=== PATIENT | female | born 1955 | race Caucasian/White ===

== ENCOUNTER 2019-03-11 08:26 | Inpatient (IN) ==
[2019-03-11] MEDS ORDERED: VANCOMYCIN INJ 1,250 MG in SODIUM CHLORIDE 0.9% 250 ML IV STA (09:27)
[2019-03-11 09:37] LABS: Basophils # 0.1 10*3/uL (0.0-0.2); Basophils % 1.1 % (0.0-0.8); Eosinophils # 0.3 10*3/uL (0.0-0.87); Eosinophils % 3.6 % (0.00-10.9); Hemoglobin 15.7 GM/DL (12.0-16.0); Immature Granulocytes % 0.5 %; Immature Granulocytes Absolute 0.04 #; Lymphocytes # 1.4 10*3/uL (1.4-4.0); Lymphocytes % 16.6 % (21.3-54.2); Mean Corpuscular HGB Conc 34.9 GM/DL (32-36); Mean Corpuscular Volume 95.3 FL (87-102); Mean Platelet Volume 9.9 FL (9.6-12.0); Monocytes % 11.7 % (1.7-12.7); Neutrophils % 66.5 % (38.7-73.9); Platelet Count 170 T/CUMM (130-400); Red Blood Count 4.72 MC/CUMM (3.8-5.5); Red Cell Distribution Width 12.7 % (9.3-17.3); White Blood Count 8.4 T/CUMM (4-12)
[2019-03-11 09:55] LABS: Calcium 9.6 MG/DL (8.5-10.1); Osmolality,Calculated 278.2 MOS/KG (273-304)
[2019-03-11] MEDS ORDERED: diphenhydrAMINE CAP 50 MG CAPSULE PO STA (10:00)
[2019-03-11] MEDS ORDERED: methylPREDNISolone SOD SUC 40 MG/1 ML VIAL IV STA (10:02)
[2019-03-11 10:40] LABS: Sedimentation Rate-Westergren 33 MM/HR (0-30)
[2019-03-11] MEDS ORDERED: ONDANSETRON 4 MG/2 ML VIAL IV PRN (10:58)
[2019-03-11] MEDS ORDERED: GLUCAGON 1 MG VIAL IM PRN (10:58)
[2019-03-11] MEDS ORDERED: DEXTROSE 50% 25 GM/50 ML VIAL IV PRN (10:58)
[2019-03-11] MEDS ORDERED: ACETAMINOPHEN 325 MG TABLET PO PRN (10:58)
[2019-03-11] MEDS ORDERED: NITROGLYCERIN SL 0.4 MG TABLET SL PRN (11:02)
[2019-03-11] MEDS ORDERED: VANCOMYCIN INJ 1,000 MG in SODIUM CHLORIDE 0.9% 250 ML IV SCH (11:30)
[2019-03-11] MEDS: MORPHINE 4 MG/1 ML VIAL IV PRN ×2 (12:51→22:28)
[2019-03-11] MEDS: ENOXAPARIN 40 MG/0.4 ML SYRINGE SUBCUT SCH (14:05)
[2019-03-11] MEDS: diphenhydrAMINE CAP 25 MG CAPSULE PO SCH (17:03)
[2019-03-11] MEDS: SODIUM CHLORIDE 0.45% 1,000 ML IV SCH ×2 (17:08→22:28)
[2019-03-11] MEDS: INSULIN LISPRO 100 UNIT/ML SUBCUT SCH ×3 (18:48→22:27)
[2019-03-11] MEDS: ATORVASTATIN 20 MG TABLET PO SCH (21:40)
[2019-03-11] MEDS: DOCUSATE SODIUM 100 MG CAPSULE PO SCH (21:40)
[2019-03-11] MEDS: DOMPERIDONE 10 MG PO SCH (21:41)
[2019-03-11] MEDS ORDERED: VANCOMYCIN INJ 1,250 MG in SODIUM CHLORIDE 0.9% 250 ML IV SCH (22:00)
[2019-03-11] MEDS: INSULIN GLARGINE 100 UNIT/ML SUBCUT SCH (22:25)
[2019-03-12] MEDS: diphenhydrAMINE CAP 25 MG CAPSULE PO SCH ×2 (01:38→05:30)
[2019-03-12] MEDS: SODIUM CHLORIDE 0.45% 1,000 ML IV SCH ×4 (05:31→19:29)
[2019-03-12 06:26] LABS: Basophils % 0.3 % (0.0-0.8); Hemoglobin 14.9 GM/DL (12.0-16.0); Immature Granulocytes % 0.7 %; Immature Granulocytes Absolute 0.07 #; Lymphocytes # 0.8 10*3/uL (1.4-4.0); Lymphocytes % 7.6 % (21.3-54.2); Mean Corpuscular HGB Conc 34.7 GM/DL (32-36); Mean Corpuscular Volume 94.9 FL (87-102); Mean Platelet Volume 10.5 FL (9.6-12.0); Monocytes % 3.9 % (1.7-12.7); Neutrophils % 87.5 % (38.7-73.9); Platelet Count 188 T/CUMM (130-400); Red Blood Count 4.53 MC/CUMM (3.8-5.5); Red Cell Distribution Width 12.9 % (9.3-17.3); White Blood Count 10.3 T/CUMM (4-12)
[2019-03-12 06:43] LABS: Calcium 9.2 MG/DL (8.5-10.1); Osmolality,Calculated 279.1 MOS/KG (273-304)
[2019-03-12] MEDS: INSULIN LISPRO 100 UNIT/ML SUBCUT SCH ×4 (09:19→20:31)
[2019-03-12] MEDS: ASPIRIN EC 81 MG TABLET PO SCH (09:20)
[2019-03-12] MEDS: sitaGLIPtin 100 MG TABLET PO SCH (09:20)
[2019-03-12] MEDS: PANTOPRAZOLE 40 MG TABLET PO SCH (09:20)
[2019-03-12] MEDS: ESCITALOPRAM 10 MG TABLET PO SCH (09:20)
[2019-03-12] MEDS: ESTRADIOL 1 MG TABLET PO SCH (09:20)
[2019-03-12] MEDS: MULTIVITAMIN (CENTRUM) TABLET PO SCH (09:20)
[2019-03-12] MEDS: DOCUSATE SODIUM 100 MG CAPSULE PO SCH ×2 (09:21→20:00)
[2019-03-12] MEDS: Empagliflozin [Jardiance] 25 MG PO SCH (09:21)
[2019-03-12] MEDS: DOMPERIDONE 10 MG PO SCH ×2 (09:21→20:30)
[2019-03-12] MEDS: METOPROLOL SUCCINATE XL 25 MG TABLET PO SCH (09:22)
[2019-03-12] MEDS: VANCOMYCIN INJ 1,250 MG in SODIUM CHLORIDE 0.9% 250 ML IV SCH ×2 (09:26→21:42)
[2019-03-12] MEDS: ENOXAPARIN 40 MG/0.4 ML SYRINGE SUBCUT SCH (12:33)
[2019-03-12] MEDS: methylPREDNISolone SOD SUC 40 MG/1 ML VIAL IV SCH ×3 (12:33→23:45)
[2019-03-12] MEDS: diphenhydrAMINE CAP 25 MG CAPSULE PO PRN ×2 (15:08→20:00)
[2019-03-12] MEDS: ATORVASTATIN 20 MG TABLET PO SCH (20:00)
[2019-03-12] MEDS: INSULIN GLARGINE 100 UNIT/ML SUBCUT SCH (20:30)
[2019-03-13] MEDS: diphenhydrAMINE CAP 25 MG CAPSULE PO PRN ×4 (01:27→20:56)
[2019-03-13] MEDS: MORPHINE 4 MG/1 ML VIAL IV PRN ×2 (01:31→11:34)
[2019-03-13] MEDS: SODIUM CHLORIDE 0.45% 1,000 ML IV SCH ×3 (05:22→16:23)
[2019-03-13] MEDS: INSULIN LISPRO 100 UNIT/ML SUBCUT SCH ×4 (08:36→21:00)
[2019-03-13] MEDS: ESCITALOPRAM 10 MG TABLET PO SCH (08:37)
[2019-03-13] MEDS: DOCUSATE SODIUM 100 MG CAPSULE PO SCH ×2 (08:37→20:56)
[2019-03-13] MEDS: ASPIRIN EC 81 MG TABLET PO SCH (08:37)
[2019-03-13] MEDS: ESTRADIOL 1 MG TABLET PO SCH (08:37)
[2019-03-13] MEDS: METOPROLOL SUCCINATE XL 25 MG TABLET PO SCH (08:37)
[2019-03-13] MEDS: MULTIVITAMIN (CENTRUM) TABLET PO SCH (08:37)
[2019-03-13] MEDS: sitaGLIPtin 100 MG TABLET PO SCH (08:37)
[2019-03-13] MEDS: PANTOPRAZOLE 40 MG TABLET PO SCH (08:37)
[2019-03-13] MEDS: DOMPERIDONE 10 MG PO SCH ×2 (08:40→20:56)
[2019-03-13] MEDS: VANCOMYCIN INJ 1,250 MG in SODIUM CHLORIDE 0.9% 250 ML IV SCH ×2 (08:40→20:57)
[2019-03-13] MEDS: Empagliflozin [Jardiance] 25 MG PO SCH (08:40)
[2019-03-13] MEDS: methylPREDNISolone SOD SUC 40 MG/1 ML VIAL IV SCH ×2 (12:54→23:03)
[2019-03-13] MEDS: ENOXAPARIN 40 MG/0.4 ML SYRINGE SUBCUT SCH (12:54)
[2019-03-13] MEDS: ATORVASTATIN 20 MG TABLET PO SCH (20:56)
[2019-03-13] MEDS: INSULIN GLARGINE 100 UNIT/ML SUBCUT SCH (20:59)
[2019-03-14] MEDS: SODIUM CHLORIDE 0.45% 1,000 ML IV SCH ×3 (02:37→14:32)
[2019-03-14] MEDS: diphenhydrAMINE CAP 25 MG CAPSULE PO PRN ×3 (03:56→20:48)
[2019-03-14] MEDS: MORPHINE 4 MG/1 ML VIAL IV PRN ×2 (03:58→15:38)
[2019-03-14 05:12] LABS: Basophils # 0.1 10*3/uL (0.0-0.2); Basophils % 0.4 % (0.0-0.8); Eosinophils % 0.1 % (0.00-10.9); Hematocrit 43.2 VOL% (35.7-47.0); Hemoglobin 14.9 GM/DL (12.0-16.0); Immature Granulocytes % 2.8 %; Lymphocytes # 1.2 10*3/uL (1.4-4.0); Lymphocytes % 8.4 % (21.3-54.2); Mean Corpuscular HGB Conc 34.5 GM/DL (32-36); Mean Corpuscular Volume 96.6 FL (87-102); Mean Platelet Volume 10.2 FL (9.6-12.0); Monocytes % 6.5 % (1.7-12.7); Neutrophils % 81.8 % (38.7-73.9); Platelet Count 182 T/CUMM (130-400); Red Blood Count 4.47 MC/CUMM (3.8-5.5); Red Cell Distribution Width 13.1 % (9.3-17.3); White Blood Count 14.1 T/CUMM (4-12)
[2019-03-14 05:37] LABS: Calcium 8.7 MG/DL (8.5-10.1); Osmolality,Calculated 283.8 MOS/KG (273-304)
[2019-03-14] MEDS: INSULIN LISPRO 100 UNIT/ML SUBCUT SCH ×4 (09:05→20:52)
[2019-03-14] MEDS: MULTIVITAMIN (CENTRUM) TABLET PO SCH (09:07)
[2019-03-14] MEDS: ESCITALOPRAM 10 MG TABLET PO SCH (09:07)
[2019-03-14] MEDS: PANTOPRAZOLE 40 MG TABLET PO SCH (09:07)
[2019-03-14] MEDS: ESTRADIOL 1 MG TABLET PO SCH (09:07)
[2019-03-14] MEDS: DOMPERIDONE 10 MG PO SCH ×2 (09:07→20:55)
[2019-03-14] MEDS: DOCUSATE SODIUM 100 MG CAPSULE PO SCH ×2 (09:07→20:48)
[2019-03-14] MEDS: ASPIRIN EC 81 MG TABLET PO SCH (09:07)
[2019-03-14] MEDS: METOPROLOL SUCCINATE XL 25 MG TABLET PO SCH (09:07)
[2019-03-14] MEDS: sitaGLIPtin 100 MG TABLET PO SCH (09:07)
[2019-03-14] MEDS: Empagliflozin [Jardiance] 25 MG PO SCH (09:08)
[2019-03-14] MEDS: VANCOMYCIN INJ 1,250 MG in SODIUM CHLORIDE 0.9% 250 ML IV SCH ×2 (09:11→20:55)
[2019-03-14] MEDS: ENOXAPARIN 40 MG/0.4 ML SYRINGE SUBCUT SCH (14:32)
[2019-03-14] MEDS: methylPREDNISolone SOD SUC 40 MG/1 ML VIAL IV SCH ×2 (14:32→23:05)
[2019-03-14] MEDS: ATORVASTATIN 20 MG TABLET PO SCH (20:51)
[2019-03-14] MEDS: INSULIN GLARGINE 100 UNIT/ML SUBCUT SCH (20:52)
[2019-03-15] MEDS: diphenhydrAMINE CAP 25 MG CAPSULE PO PRN (02:15)
[2019-03-15] MEDS: SODIUM CHLORIDE 0.45% 1,000 ML IV SCH ×2 (04:35→04:40)
[2019-03-15 07:28] VITALS: BP 154/74
[2019-03-15] MEDS: INSULIN LISPRO 100 UNIT/ML SUBCUT SCH (09:28)
[2019-03-15] MEDS: METOPROLOL SUCCINATE XL 25 MG TABLET PO SCH (09:30)
[2019-03-15] MEDS: ASPIRIN EC 81 MG TABLET PO SCH (09:30)
[2019-03-15] MEDS: ESTRADIOL 1 MG TABLET PO SCH (09:30)
[2019-03-15] MEDS: sitaGLIPtin 100 MG TABLET PO SCH (09:31)
[2019-03-15] MEDS: PANTOPRAZOLE 40 MG TABLET PO SCH (09:31)
[2019-03-15] MEDS: DOCUSATE SODIUM 100 MG CAPSULE PO SCH (09:31)
[2019-03-15] MEDS: ESCITALOPRAM 10 MG TABLET PO SCH (09:31)
[2019-03-15] MEDS: MULTIVITAMIN (CENTRUM) TABLET PO SCH (09:31)
[2019-03-15] MEDS: Empagliflozin [Jardiance] 25 MG PO SCH (09:35)
[2019-03-15] MEDS: DOMPERIDONE 10 MG PO SCH (09:35)
[2019-03-15] MEDS: VANCOMYCIN INJ 1,250 MG in SODIUM CHLORIDE 0.9% 250 ML IV SCH (09:59)
== END 2019-03-15 10:03 | disposition home or self-care (01) | DRG 603 ==
LOC: N.ED 08:26 → N.EDINP 10:58 → N.5E 12:22
PROVIDERS: ADMIT Family Medicine; ATTEND Family Medicine

== ENCOUNTER 2020-06-23 04:16 | Inpatient (IN) ==
[2020-06-23] MEDS ORDERED: SODIUM CHLORIDE 0.9% 1,000 ML IV STA (04:48)
[2020-06-23] MEDS ORDERED: ASPIRIN CHEW 81 MG TABLET PO STA (04:48)
[2020-06-23 04:49] LABS: Basophils # 0.1 10*3/uL (0.0-0.2); Basophils % 0.9 % (0.0-0.8); Eosinophils % 0.3 % (0.00-10.9); Hematocrit 37.8 VOL% (35.7-47.0); Hemoglobin 13.5 GM/DL (12.0-16.0); Immature Granulocytes % 0.4 %; Immature Granulocytes Absolute 0.03 #; Lymphocytes % 27.4 % (21.3-54.2); Mean Corpuscular HGB Conc 35.7 GM/DL (32-36); Mean Corpuscular Volume 89.6 FL (87-102); Mean Platelet Volume 10.1 FL (9.6-12.0); Monocytes % 14.1 % (1.7-12.7); Neutrophils % 56.9 % (38.7-73.9); Platelet Count 97 T/CUMM (130-400); Red Blood Count 4.22 MC/CUMM (3.8-5.5); Red Cell Distribution Width 13.4 % (9.3-17.3); White Blood Count 7.4 T/CUMM (4-12)
[2020-06-23] MEDS ORDERED: MORPHINE 4 MG/1 ML VIAL IV STA (04:49)
[2020-06-23] MEDS ORDERED: ONDANSETRON 4 MG/2 ML VIAL IV ONE (04:49)
[2020-06-23 05:13] LABS: Lymphocytes 18 % (20-55); Platelet Estimate Decreased; Segmented Neutrophils 72 % (50-85); Total Cells Counted 100
[2020-06-23] MEDS ORDERED: NITROGLYCERIN SL 0.4 MG TABLET SL STA (05:37)
[2020-06-23 05:57] LABS: Albumin 3.4 G/DL (3.4-5.0); Bilirubin,Total 1.1 MG/DL (0.2-1.0); Calcium 8.7 MG/DL (8.5-10.1); Osmolality,Calculated 275.1 MOS/KG (273-304); Potassium 3.7 MMOL/L (3.5-5.1)
[2020-06-23] MEDS ORDERED: ENOXAPARIN 30 MG/0.3 ML SYRINGE SUBCUT STA (05:57)
[2020-06-23] MEDS ORDERED: ENOXAPARIN 80 MG/0.8 ML SYRINGE SUBCUT ONE (06:59)
[2020-06-23] MEDS ORDERED: NITROGLYCERIN SL 0.4 MG TABLET SL PRN (08:32)
[2020-06-23] MEDS ORDERED: ONDANSETRON 4 MG/2 ML VIAL IV PRN (08:32)
[2020-06-23] MEDS ORDERED: ENOXAPARIN 100 MG/ML SYRINGE SUBCUT SCH (08:32)
[2020-06-23] MEDS ORDERED: ASPIRIN EC 81 MG TABLET PO SCH (09:00)
[2020-06-23] MEDS ORDERED: DEXTROSE 50% 25 GM/50 ML VIAL IV PRN ×2 (09:17→10:41)
[2020-06-23] MEDS ORDERED: GLUCAGON 1 MG VIAL IM PRN (09:17)
[2020-06-23 09:25] LABS: Troponin I 0.893 NG/ML (0.00-0.045)
[2020-06-23] MEDS: PANTOPRAZOLE 40 MG TABLET PO SCH ×2 (09:46→10:15)
[2020-06-23] MEDS: ESCITALOPRAM 10 MG TABLET PO SCH (09:47)
[2020-06-23] MEDS: BISOPROLOL 5 MG TABLET PO SCH ×2 (09:47→10:15)
[2020-06-23] MEDS: ASPIRIN EC 325 MG TABLET PO SCH (09:47)
[2020-06-23] MEDS: MULTIVITAMIN (CENTRUM) TABLET PO SCH (09:48)
[2020-06-23] MEDS: ACETAMINOPHEN 325 MG TABLET PO PRN ×2 (09:49→17:02)
[2020-06-23] MEDS: DOMPERIDONE 10 MG PO SCH ×2 (10:14→20:46)
[2020-06-23] MEDS ORDERED: CLOPIDOGREL 75 MG TABLET PO ONE (12:00)
[2020-06-23] MEDS: INSULIN LISPRO 100 UNIT/ML SUBCUT SCH ×3 (12:31→20:47)
[2020-06-23] MEDS: SODIUM CHLORIDE 0.9% 1,000 ML IV SCH ×2 (17:41→23:36)
[2020-06-23] MEDS: ENOXAPARIN 60 MG/0.6 ML SYRINGE SUBCUT SCH (20:47)
[2020-06-23] MEDS: ATORVASTATIN 20 MG TABLET PO SCH (20:47)
[2020-06-24] MEDS: ACETAMINOPHEN 325 MG TABLET PO PRN (05:23)
[2020-06-24] MEDS: SODIUM CHLORIDE 0.9% 1,000 ML IV SCH ×3 (06:06→16:14)
[2020-06-24 06:10] LABS: Basophils # 0.1 10*3/uL (0.0-0.2); Eosinophils % 0.8 % (0.00-10.9); Hematocrit 35.2 VOL% (35.7-47.0); Hemoglobin 11.9 GM/DL (12.0-16.0); Immature Granulocytes % 0.6 %; Immature Granulocytes Absolute 0.03 #; Lymphocytes # 1.8 10*3/uL (1.4-4.0); Lymphocytes % 35.7 % (21.3-54.2); Mean Corpuscular HGB Conc 33.8 GM/DL (32-36); Mean Corpuscular Volume 93.4 FL (87-102); Mean Platelet Volume 10.7 FL (9.6-12.0); Monocytes % 13.1 % (1.7-12.7); Neutrophils % 48.8 % (38.7-73.9); Platelet Count 84 T/CUMM (130-400); Red Blood Count 3.77 MC/CUMM (3.8-5.5); Red Cell Distribution Width 13.9 % (9.3-17.3); White Blood Count 5.1 T/CUMM (4-12)
[2020-06-24 06:37] LABS: Albumin 2.8 G/DL (3.4-5.0); Bilirubin,Total 0.9 MG/DL (0.2-1.0); Calcium 8.1 MG/DL (8.5-10.1); Osmolality,Calculated 273.7 MOS/KG (273-304); Potassium 3.9 MMOL/L (3.5-5.1); Total Protein 7.4 G/DL (6.4-8.3)
[2020-06-24 07:16] LABS: Atypical Lymphocytes Few; Band Neutrophils 2 % (0-10); Hypochromasia 1+; Lymphocytes 29 % (20-55); Segmented Neutrophils 56 % (50-85); Total Cells Counted 100
[2020-06-24 07:17] LABS: Microcytosis 1+; Platelet Estimate Decreased
[2020-06-24] MEDS ORDERED: diphenhydrAMINE CAP 25 MG CAPSULE PO ONE (08:52)
[2020-06-24] MEDS ORDERED: POTASSIUM CHLORIDE RIDER 10 MEQ in PREMIX 1 EACH IV PRN (08:52)
[2020-06-24] MEDS ORDERED: DIAZEPAM 5 MG TABLET PO ONE (08:52)
[2020-06-24] MEDS ORDERED: MAGNESIUM SULF RIDER 2 GM in PREMIX 1 EACH IV PRN (08:52)
[2020-06-24] MEDS ORDERED: ASPIRIN CHEW 81 MG TABLET PO ONE (08:52)
[2020-06-24] MEDS ORDERED: CLOPIDOGREL 75 MG TABLET PO SCH (09:00)
[2020-06-24] MEDS: ASPIRIN EC 325 MG TABLET PO SCH (09:38)
[2020-06-24] MEDS: ESCITALOPRAM 10 MG TABLET PO SCH (09:38)
[2020-06-24] MEDS: PANTOPRAZOLE 40 MG TABLET PO SCH (09:38)
[2020-06-24] MEDS: BISOPROLOL 5 MG TABLET PO SCH (09:42)
[2020-06-24] MEDS: INSULIN LISPRO 100 UNIT/ML SUBCUT SCH ×4 (09:42→21:30)
[2020-06-24] MEDS: ENOXAPARIN 60 MG/0.6 ML SYRINGE SUBCUT SCH (09:42)
[2020-06-24] MEDS ORDERED: MIDAZOLAM 2 MG/2 ML VIAL ONE (10:53)
[2020-06-24] MEDS ORDERED: fentaNYL 100 MCG/2 ML VIAL ONE (10:54)
[2020-06-24] MEDS ORDERED: LIDOCAINE 1% 20 ML VIAL ONE (10:58)
[2020-06-24] MEDS ORDERED: HEPARIN 5,000 UNIT/1 ML VIAL ONE (11:22)
[2020-06-24] MEDS ORDERED: TIROFIBAN 5,000 MCG/100 ML PREMIX IV ONE (11:26)
[2020-06-24] MEDS ORDERED: TIROFIBAN 5,000 MCG/100 ML PREMIX IV SCH (11:33)
[2020-06-24] MEDS ORDERED: NITROGLYCERIN DRIP 50 MG/250 ML BOTTLE IV ONE (11:58)
[2020-06-24] MEDS ORDERED: TICAGRELOR 90 MG TABLET ONE (12:21)
[2020-06-24] MEDS ORDERED: FUROSEMIDE 40 MG/4 ML VIAL ONE (12:28)
[2020-06-24] MEDS ORDERED: ALBUTEROL/IPRATROPIUM 3 ML NEB RESP TX ONE (12:31)
[2020-06-24] MEDS ORDERED: flumazeniL 0.5 MG/5 ML VIAL IV ONE ×2 (12:38→12:41)
[2020-06-24] MEDS: MULTIVITAMIN (CENTRUM) TABLET PO SCH (13:00)
[2020-06-24] MEDS: DOMPERIDONE 10 MG PO SCH ×2 (13:50→20:17)
[2020-06-24 14:28] LABS: Troponin I 0.587 NG/ML (0.00-0.045)
[2020-06-24] MEDS: ALBUTEROL/IPRATROPIUM 3 ML NEB RESP TX SCH ×3 (15:15→23:11)
[2020-06-24] MEDS: TICAGRELOR 90 MG TABLET PO SCH (20:18)
[2020-06-24] MEDS: ATORVASTATIN 20 MG TABLET PO SCH (20:18)
[2020-06-24] MEDS ORDERED: diphenhydrAMINE CAP 25 MG CAPSULE PO PRN (21:28)
[2020-06-24 22:28] LABS: CKMB % 12.3 %
[2020-06-24 22:34] LABS: Troponin I 1.28 NG/ML (0.00-0.045)
[2020-06-25] MEDS: ALBUTEROL/IPRATROPIUM 3 ML NEB RESP TX SCH ×4 (05:27→20:05)
[2020-06-25 05:40] LABS: Basophils % 0.6 % (0.0-0.8); Hematocrit 34.1 VOL% (35.7-47.0); Hemoglobin 11.8 GM/DL (12.0-16.0); Immature Granulocytes % 0.6 %; Immature Granulocytes Absolute 0.04 #; Lymphocytes # 1.8 10*3/uL (1.4-4.0); Lymphocytes % 25.1 % (21.3-54.2); Mean Corpuscular HGB Conc 34.6 GM/DL (32-36); Mean Corpuscular Volume 90.5 FL (87-102); Mean Platelet Volume 10.1 FL (9.6-12.0); Monocytes % 17.2 % (1.7-12.7); Neutrophils % 56.5 % (38.7-73.9); Platelet Count 100 T/CUMM (130-400); Red Blood Count 3.77 MC/CUMM (3.8-5.5); Red Cell Distribution Width 13.6 % (9.3-17.3)
[2020-06-25 05:59] LABS: Albumin 2.6 G/DL (3.4-5.0); Bilirubin,Total 1.2 MG/DL (0.2-1.0); Calcium 8.3 MG/DL (8.5-10.1); Osmolality,Calculated 275.8 MOS/KG (273-304); Potassium 3.5 MMOL/L (3.5-5.1); Total Protein 7.2 G/DL (6.4-8.3)
[2020-06-25 06:00] LABS: CKMB % 12.5 %
[2020-06-25 06:13] LABS: Troponin I 2.03 NG/ML (0.00-0.045)
[2020-06-25 06:16] LABS: Atypical Lymphocytes Few; Band Neutrophils 2 % (0-10); Hypochromasia 1+; Lymphocytes 22 % (20-55); Metamyelocytes 1 %; Microcytosis 1+; Segmented Neutrophils 60 % (50-85); Total Cells Counted 100
[2020-06-25 06:17] LABS: Platelet Estimate Decreased; Polychromasia Slight
[2020-06-25] MEDS: INSULIN LISPRO 100 UNIT/ML SUBCUT SCH ×4 (07:29→21:51)
[2020-06-25] MEDS: MULTIVITAMIN (CENTRUM) TABLET PO SCH (08:27)
[2020-06-25] MEDS: ASPIRIN CHEW 81 MG TABLET PO SCH (08:27)
[2020-06-25] MEDS: ESCITALOPRAM 10 MG TABLET PO SCH (08:27)
[2020-06-25] MEDS: TICAGRELOR 90 MG TABLET PO SCH ×2 (08:27→21:08)
[2020-06-25] MEDS: BISOPROLOL 5 MG TABLET PO SCH (08:28)
[2020-06-25] MEDS: FUROSEMIDE 20 MG/2 ML VIAL IV SCH (08:36)
[2020-06-25] MEDS: PANTOPRAZOLE 40 MG TABLET PO SCH (08:39)
[2020-06-25] MEDS: DOMPERIDONE 10 MG PO SCH ×3 (08:39→21:07)
[2020-06-25] MEDS ORDERED: BISOPROLOL 5 MG TABLET PO ONE (09:27)
[2020-06-25] MEDS: ACETAMINOPHEN 325 MG TABLET PO PRN (21:07)
[2020-06-25] MEDS: ATORVASTATIN 20 MG TABLET PO SCH (21:08)
[2020-06-26] MEDS: ALBUTEROL/IPRATROPIUM 3 ML NEB RESP TX SCH ×8 (00:21→23:50)
[2020-06-26] MEDS: SODIUM CHLORIDE 0.9% 1,000 ML IV SCH (02:41)
[2020-06-26 04:50] LABS: Calcium 7.9 MG/DL (8.5-10.1); Osmolality,Calculated 275.1 MOS/KG (273-304); Potassium 3.1 MMOL/L (3.5-5.1)
[2020-06-26] MEDS: ESCITALOPRAM 10 MG TABLET PO SCH (08:49)
[2020-06-26] MEDS: ASPIRIN CHEW 81 MG TABLET PO SCH (08:49)
[2020-06-26] MEDS: PANTOPRAZOLE 40 MG TABLET PO SCH (08:50)
[2020-06-26] MEDS: TICAGRELOR 90 MG TABLET PO SCH ×2 (08:50→21:44)
[2020-06-26] MEDS: DOMPERIDONE 10 MG PO SCH ×2 (08:52→21:44)
[2020-06-26] MEDS: FUROSEMIDE 20 MG/2 ML VIAL IV SCH (08:53)
[2020-06-26] MEDS: MULTIVITAMIN (CENTRUM) TABLET PO SCH (08:57)
[2020-06-26] MEDS ORDERED: POTASSIUM CHLORIDE 20 MEQ TABLET PO ONE (09:26)
[2020-06-26] MEDS: INSULIN LISPRO 100 UNIT/ML SUBCUT SCH ×4 (10:01→22:59)
[2020-06-26] MEDS ORDERED: ATORVASTATIN 80 MG TABLET PO SCH (10:02)
[2020-06-26] MEDS: BISOPROLOL 5 MG TABLET PO SCH (10:35)
[2020-06-26 10:38] LABS: Risk Ratio 7.12; VLDL CHOLESTEROL 42.6 MG/DL
[2020-06-27] MEDS: ALBUTEROL/IPRATROPIUM 3 ML NEB RESP TX SCH ×2 (03:15→07:36)
[2020-06-27 06:38] LABS: Calcium 8.4 MG/DL (8.5-10.1); Osmolality,Calculated 280.4 MOS/KG (273-304); Potassium 3.7 MMOL/L (3.5-5.1)
[2020-06-27 07:46] VITALS: BP 99/58
[2020-06-27] MEDS ORDERED: INSULIN GLARGINE 100 UNIT/ML SUBCUT SCH (09:00)
[2020-06-27] MEDS: ESCITALOPRAM 10 MG TABLET PO SCH (09:03)
[2020-06-27] MEDS: BISOPROLOL 5 MG TABLET PO SCH (09:03)
[2020-06-27] MEDS: PANTOPRAZOLE 40 MG TABLET PO SCH (09:03)
[2020-06-27] MEDS: TICAGRELOR 90 MG TABLET PO SCH (09:04)
[2020-06-27] MEDS: ASPIRIN CHEW 81 MG TABLET PO SCH (09:04)
[2020-06-27] MEDS: MULTIVITAMIN (CENTRUM) TABLET PO SCH (09:05)
[2020-06-27] MEDS: DOMPERIDONE 10 MG PO SCH (09:05)
[2020-06-27] MEDS: INSULIN LISPRO 100 UNIT/ML SUBCUT SCH (09:38)
[2020-06-27] MEDS: SODIUM CHLORIDE 0.9% 1,000 ML IV SCH (09:39)
[2020-06-30] MEDS ORDERED: [UNRECOGNIZED DRUG - REMARK] SUBCUT SCH (09:00)
== END 2020-06-27 10:26 | disposition home or self-care (01) | DRG 247 ==
LOC: N.EDINP 04:16 → N.ED 04:16 → N.EDINP 08:09 → N.TELES 08:20 → N.ICU 06-24 13:17 → SUATTDRO 06-24 13:22 → N.TELES 06-25 13:47
PROVIDERS: ADMIT Family Medicine; ATTEND Family Medicine
PROC: CLCCHCL (ICD-10-PCS; 2020-06-24 11:45)

== ENCOUNTER 2020-08-15 10:07 | Inpatient (IN) ==
[2020-08-15] MEDS ORDERED: SODIUM CHLORIDE 0.9% 1,000 ML IV STA (10:39)
[2020-08-15] MEDS ORDERED: PROMETHAZINE 25 MG/1 ML VIAL IM STA (10:39)
[2020-08-15] MEDS ORDERED: MORPHINE 4 MG/1 ML VIAL IV ONE (10:39)
[2020-08-15 10:55] LABS: Basophils # 0.1 10*3/uL (0.0-0.2); Basophils % 0.9 % (0.0-0.8); Eosinophils % 0.2 % (0.00-10.9); Hematocrit 28.3 VOL% (35.7-47.0); Hemoglobin 9.7 GM/DL (12.0-16.0); Immature Granulocytes % 0.9 %; Immature Granulocytes Absolute 0.05 #; Lymphocytes # 2.1 10*3/uL (1.4-4.0); Mean Corpuscular HGB Conc 34.3 GM/DL (32-36); Mean Corpuscular Volume 91.9 FL (87-102); Mean Platelet Volume 9.4 FL (9.6-12.0); Platelet Count 102 T/CUMM (130-400); Red Blood Count 3.08 MC/CUMM (3.8-5.5); Red Cell Distribution Width 17.4 % (9.3-17.3); White Blood Count 5.8 T/CUMM (4-12)
[2020-08-15 11:11] LABS: Albumin 2.5 G/DL (3.4-5.0); Bilirubin,Total 0.9 MG/DL (0.2-1.0); Osmolality,Calculated 258.9 MOS/KG (273-304); Potassium 4.3 MMOL/L (3.5-5.1); Total Protein 9.2 G/DL (6.4-8.3)
[2020-08-15 11:13] LABS: Eosinophils 1 % (0-10); Hypochromasia 1+; Lymphocytes 35 % (20-55); Microcytosis 1+; Ovalocytes Slight; Platelet Estimate Decreased; Segmented Neutrophils 46 % (50-85); Total Cells Counted 100
[2020-08-15 11:14] LABS: Atypical Lymphocytes Few
[2020-08-15 11:23] LABS: Bilirubin,Urine Negative (Negative); Blood, Urine Moderate mg/dL (Negative); Glucose,Urine (UA) >=500 mg/dL (Negative); Hyaline Casts,Urine 2 /LPF (0-3); Ketones,Urine Negative (Negative); Mucus,Urine Occasional /LPF (Occasional); Nitrite,Urine Negative (Negative); Protein,Urine 100 MG/DL; RBC,Urine 8 /HPF (0-4); Squamous Epithelial Cell,Urine Few /HPF (0-10); Urine Appearance Slightly Hazy (Clear); Urine Color Yellow (Yellow); Urine Specific Gravity 1.018 (1.001-1.035); Urine Urobilinogen < 2.0 EU/DL (0.2-1.0); WBC,Urine 1 /HPF (0-6)
[2020-08-15 11:29] LABS: Ferritin 283.3 ng/ml (8-252)
[2020-08-15] MEDS ORDERED: LEVOFLOXACIN INJ 750 MG in PREMIX 1 EACH IV STA (11:47)
[2020-08-15] MEDS ORDERED: MAGNESIUM SULF RIDER 4 GM in PREMIX 1 EACH IV PRN (15:46)
[2020-08-15] MEDS ORDERED: ONDANSETRON 4 MG/2 ML VIAL IV PRN (15:46)
[2020-08-15] MEDS ORDERED: ALBUTEROL/IPRATROPIUM 3 ML NEB RESP TX STA (15:46)
[2020-08-15] MEDS ORDERED: DEXAMETHASONE 4 MG/1 ML VIAL IV STA (15:46)
[2020-08-15] MEDS ORDERED: GLUCAGON 1 MG VIAL IM PRN ×2 (15:46)
[2020-08-15] MEDS ORDERED: PROMETHAZINE 25 MG/1 ML VIAL IM PRN (15:46)
[2020-08-15] MEDS ORDERED: traMADol 50 MG TABLET PO PRN (15:46)
[2020-08-15] MEDS ORDERED: DEXTROSE 50% 25 GM/50 ML VIAL IV PRN ×2 (15:46)
[2020-08-15] MEDS ORDERED: POTASSIUM CHLORIDE RIDER 10 MEQ in PREMIX 1 EACH IV PRN (15:46)
[2020-08-15] MEDS ORDERED: POTASSIUM CHLORIDE 20 MEQ TABLET PO PRN (15:46)
[2020-08-15] MEDS ORDERED: MAGNESIUM SULF RIDER 2 GM in PREMIX 1 EACH IV PRN (15:46)
[2020-08-15] MEDS ORDERED: NITROGLYCERIN SL 0.4 MG TABLET SL PRN (15:46)
[2020-08-15] MEDS: oxyCODONE/ACETAMINOPHEN 5-325 MG TABLET PO PRN (16:11)
[2020-08-15] MEDS: INSULIN REGULAR 100 UNIT/ML SUBCUT SCH ×2 (17:54→20:37)
[2020-08-15] MEDS: SODIUM CHLORIDE 0.9% 1,000 ML IV SCH ×2 (18:09→23:52)
[2020-08-15] MEDS: DOCUSATE SODIUM 100 MG CAPSULE PO SCH (20:36)
[2020-08-15] MEDS: TOPIRAMATE 25 MG TABLET PO SCH (20:37)
[2020-08-15] MEDS ORDERED: ATORVASTATIN 20 MG TABLET PO SCH (21:00)
[2020-08-16] MEDS: ACETAMINOPHEN 325 MG TABLET PO PRN (01:45)
[2020-08-16] MEDS: oxyCODONE/ACETAMINOPHEN 5-325 MG TABLET PO PRN ×3 (02:36→17:27)
[2020-08-16] MEDS: SODIUM CHLORIDE 0.9% 1,000 ML IV SCH ×3 (03:32→18:09)
[2020-08-16 05:40] LABS: Basophils % 0.5 % (0.0-0.8); Hematocrit 23.1 VOL% (35.7-47.0); Hemoglobin 7.7 GM/DL (12.0-16.0); Immature Granulocytes % 1.3 %; Immature Granulocytes Absolute 0.05 #; Lymphocytes # 1.2 10*3/uL (1.4-4.0); Lymphocytes % 30.3 % (21.3-54.2); Mean Corpuscular HGB Conc 33.3 GM/DL (32-36); Mean Corpuscular Volume 93.9 FL (87-102); Mean Platelet Volume 9.5 FL (9.6-12.0); Monocytes % 15.5 % (1.7-12.7); Neutrophils % 52.4 % (38.7-73.9); Platelet Count 90 T/CUMM (130-400); Red Blood Count 2.46 MC/CUMM (3.8-5.5); Red Cell Distribution Width 17.4 % (9.3-17.3); White Blood Count 3.9 T/CUMM (4-12)
[2020-08-16 05:58] LABS: Calcium 7.4 MG/DL (8.5-10.1); Osmolality,Calculated 265.5 MOS/KG (273-304); Potassium 4.3 MMOL/L (3.5-5.1)
[2020-08-16 06:08] LABS: Lymphocytes 33 % (20-55); Metamyelocytes 1 %; Platelet Estimate Decreased; Segmented Neutrophils 52 % (50-85); Total Cells Counted 100
[2020-08-16 07:49] LABS: Basophils % 0.5 % (0.0-0.8); Hematocrit 25.7 VOL% (35.7-47.0); Hemoglobin 8.6 GM/DL (12.0-16.0); Immature Granulocytes % 1.3 %; Immature Granulocytes Absolute 0.05 #; Lymphocytes # 1.1 10*3/uL (1.4-4.0); Lymphocytes % 29.3 % (21.3-54.2); Mean Corpuscular HGB Conc 33.5 GM/DL (32-36); Mean Corpuscular Volume 94.1 FL (87-102); Mean Platelet Volume 9.4 FL (9.6-12.0); Monocytes % 14.5 % (1.7-12.7); Neutrophils % 54.4 % (38.7-73.9); Red Blood Count 2.73 MC/CUMM (3.8-5.5); Red Cell Distribution Width 17.8 % (9.3-17.3); White Blood Count 3.9 T/CUMM (4-12)
[2020-08-16 07:50] LABS: Platelet Count 96 T/CUMM (130-400)
[2020-08-16 07:57] LABS: Calcium 7.5 MG/DL (8.5-10.1); Osmolality,Calculated 266.4 MOS/KG (273-304); Potassium 4.2 MMOL/L (3.5-5.1)
[2020-08-16 08:05] LABS: Risk Ratio 6.8; VLDL CHOLESTEROL 36.8 MG/DL
[2020-08-16] MEDS: INSULIN REGULAR 100 UNIT/ML SUBCUT SCH ×4 (08:36→21:24)
[2020-08-16 08:59] LABS: Band Neutrophils 4 % (0-10); Lymphocytes 27 % (20-55); Platelet Estimate Decreased; Segmented Neutrophils 50 % (50-85); Total Cells Counted 100
[2020-08-16 09:00] LABS: Anisocytosis 1+; Macrocytosis Slight; Polychromasia Slight
[2020-08-16] MEDS: ASPIRIN CHEW 81 MG TABLET PO SCH (09:12)
[2020-08-16] MEDS: TOPIRAMATE 25 MG TABLET PO SCH (09:12)
[2020-08-16] MEDS: CLOPIDOGREL 75 MG TABLET PO SCH (09:12)
[2020-08-16] MEDS: BISOPROLOL 5 MG TABLET PO SCH (09:13)
[2020-08-16] MEDS: PANTOPRAZOLE 40 MG TABLET PO SCH (09:13)
[2020-08-16] MEDS: DOCUSATE SODIUM 100 MG CAPSULE PO SCH ×2 (09:13→21:24)
[2020-08-16] MEDS: ESCITALOPRAM 10 MG TABLET PO SCH (09:13)
[2020-08-16] MEDS: LEVOFLOXACIN INJ 750 MG in PREMIX 1 EACH IV SCH (09:15)
[2020-08-16] MEDS: ATORVASTATIN 40 MG TABLET PO SCH (21:24)
[2020-08-17] MEDS: SODIUM CHLORIDE 0.9% 1,000 ML IV SCH ×5 (01:50→18:33)
[2020-08-17] MEDS: oxyCODONE/ACETAMINOPHEN 5-325 MG TABLET PO PRN ×3 (01:56→21:52)
[2020-08-17 06:11] LABS: Alanine Aminotransferase < 9 U/L (13-56); Albumin 1.9 G/DL (3.4-5.0); Alkaline Phosphatase 51 U/L (45-117); Aspartate Amino Transferase 27 U/L (0-37); Bilirubin,Indirect 0.6 MG/DL (0.0-1.0); Total Protein 7.4 G/DL (6.4-8.3)
[2020-08-17 06:14] LABS: % Iron Saturation 19.6 % (18-50); Ferritin 237.8 ng/ml (8-252)
[2020-08-17 06:37] LABS: Folate 11.7 NG/ML (5.38-24.0)
[2020-08-17 07:05] LABS: Basophils % 0.9 % (0.0-0.8); Eosinophils # 0.1 10*3/uL (0.0-0.87); Eosinophils % 1.2 % (0.00-10.9); Hematocrit 23.1 VOL% (35.7-47.0); Hemoglobin 7.8 GM/DL (12.0-16.0); Immature Granulocytes % 0.9 %; Immature Granulocytes Absolute 0.04 #; Lymphocytes # 1.4 10*3/uL (1.4-4.0); Lymphocytes % 33.3 % (21.3-54.2); Mean Corpuscular HGB Conc 33.8 GM/DL (32-36); Mean Corpuscular Volume 95.1 FL (87-102); Mean Platelet Volume 9.6 FL (9.6-12.0); Neutrophils % 46.7 % (38.7-73.9); Platelet Count 91 T/CUMM (130-400); Red Blood Count 2.43 MC/CUMM (3.8-5.5); Red Cell Distribution Width 18.5 % (9.3-17.3); White Blood Count 4.2 T/CUMM (4-12)
[2020-08-17 07:24] LABS: Band Neutrophils 2 % (0-10); Eosinophils 2 % (0-10); Lymphocytes 28 % (20-55); Segmented Neutrophils 52 % (50-85); Total Cells Counted 100
[2020-08-17 07:25] LABS: Anisocytosis 2+; Platelet Estimate Decreased; Polychromasia Slight
[2020-08-17 07:26] LABS: Macrocytosis Slight
[2020-08-17] MEDS: INSULIN REGULAR 100 UNIT/ML SUBCUT SCH ×4 (08:28→21:53)
[2020-08-17] MEDS: LEVOFLOXACIN INJ 750 MG in PREMIX 1 EACH IV SCH (08:28)
[2020-08-17] MEDS: predniSONE 20 MG TABLET PO SCH (08:35)
[2020-08-17] MEDS: ESCITALOPRAM 10 MG TABLET PO SCH (08:35)
[2020-08-17] MEDS: ASPIRIN CHEW 81 MG TABLET PO SCH (08:35)
[2020-08-17] MEDS: DOCUSATE SODIUM 100 MG CAPSULE PO SCH ×2 (08:36→21:53)
[2020-08-17] MEDS: PANTOPRAZOLE 40 MG TABLET PO SCH (08:36)
[2020-08-17] MEDS: BISOPROLOL 5 MG TABLET PO SCH (08:36)
[2020-08-17] MEDS: TOPIRAMATE 25 MG TABLET PO SCH (08:36)
[2020-08-17] MEDS: CLOPIDOGREL 75 MG TABLET PO SCH (08:36)
[2020-08-17 09:50] LABS: Haptoglobin < 8.0 MG/DL (30-200); Immunoglobulin A 535 MG/DL (70-400); Immunoglobulin G 2730 MG/DL (700-1600); Immunoglobulin M 306 MG/DL (40-230); Total Protein 7.4 G/DL (6.4-8.3)
[2020-08-17] MEDS: APIXABAN 2.5 MG TABLET PO SCH ×2 (11:46→21:53)
[2020-08-17 11:51] LABS: Hepatitis B Core IgM Quant < 0.05 Index; Hepatitis B Surface Ag Quant 0.34 Index; Hepatitis B Surface Ag Result Non-Reactive (NonReactive); Hepatitis C Virus Ab Quant 0.37 Index; Hepatitis C Virus Ab Result Non-Reactive (NonReactive)
[2020-08-17] MEDS ORDERED: DEXTROSE 50% 25 GM/50 ML VIAL IV PRN (13:58)
[2020-08-17] MEDS ORDERED: GLUCAGON 1 MG VIAL IM PRN (13:58)
[2020-08-17] MEDS: ATORVASTATIN 40 MG TABLET PO SCH (21:53)
[2020-08-17] MEDS ORDERED: ZIPRASIDONE 20 MG/1 ML VIAL IM ONE (23:04)
[2020-08-18] MEDS: SODIUM CHLORIDE 0.9% 1,000 ML IV SCH ×3 (02:30→20:31)
[2020-08-18 05:52] LABS: Hematocrit 24.6 VOL% (35.7-47.0); Hemoglobin 8.3 GM/DL (12.0-16.0); Immature Granulocytes % 2.2 %; Immature Granulocytes Absolute 0.06 #; Lymphocytes # 0.7 10*3/uL (1.4-4.0); Lymphocytes % 26.6 % (21.3-54.2); Mean Corpuscular HGB Conc 33.7 GM/DL (32-36); Mean Corpuscular Volume 93.9 FL (87-102); Mean Platelet Volume 9.9 FL (9.6-12.0); Monocytes % 16.9 % (1.7-12.7); Neutrophils % 54.3 % (38.7-73.9); Red Blood Count 2.62 MC/CUMM (3.8-5.5); Red Cell Distribution Width 18.5 % (9.3-17.3)
[2020-08-18] MEDS: oxyCODONE/ACETAMINOPHEN 5-325 MG TABLET PO PRN ×2 (05:57→21:50)
[2020-08-18 05:58] LABS: Platelet Count 85 T/CUMM (130-400); White Blood Count 2.8 T/CUMM (4-12)
[2020-08-18 06:14] LABS: Calcium 7.8 MG/DL (8.5-10.1); Osmolality,Calculated 276.8 MOS/KG (273-304); Potassium 4.4 MMOL/L (3.5-5.1)
[2020-08-18 06:19] LABS: Band Neutrophils 1 % (0-10); Lymphocytes 21 % (20-55); Segmented Neutrophils 68 % (50-85)
[2020-08-18 06:21] LABS: Platelet Estimate Decreased; Polychromasia 1+
[2020-08-18 06:24] LABS: Total Cells Counted 100
[2020-08-18 07:09] LABS: Albumin (SPE) 3.1 G/DL (3.2-5.3); Albumin (SPE) Rel % 42.4 %; Alpha 1 (SPE) 0.3 G/DL (0.1-0.4); Alpha 1 (SPE) Rel % 3.7 %; Alpha 2 (SPE) 0.6 G/DL (0.4-1.0); Alpha 2 (SPE) Rel % 8.2 %; Beta (SPE) 0.6 G/DL (0.5-1.1); Beta (SPE) Rel % 7.8 %; Gamma (SPE) 2.8 G/DL (0.7-1.7); Gamma (SPE) Rel % 37.9 %
[2020-08-18 07:15] LABS: Total Protein (Chem) 7.4 G/DL (6.4-8.3)
[2020-08-18 07:19] LABS: Immunoglobulin A (Chem) 535 MG/DL (70-400); Immunoglobulin G (Chem) 2730 MG/DL (700-1600); Immunoglobulin M (Chem) 306 MG/DL (40-230)
[2020-08-18] MEDS ORDERED: BISACODYL 5 MG TABLET PO PRN (08:50)
[2020-08-18] MEDS: INSULIN REGULAR 100 UNIT/ML SUBCUT SCH ×4 (08:53→20:31)
[2020-08-18] MEDS: APIXABAN 2.5 MG TABLET PO SCH ×2 (09:01→20:31)
[2020-08-18] MEDS: DOCUSATE SODIUM 100 MG CAPSULE PO SCH ×2 (09:01→20:30)
[2020-08-18] MEDS: LEVOFLOXACIN INJ 750 MG in PREMIX 1 EACH IV SCH (09:02)
[2020-08-18] MEDS: CLOPIDOGREL 75 MG TABLET PO SCH (09:02)
[2020-08-18] MEDS: predniSONE 20 MG TABLET PO SCH (09:02)
[2020-08-18] MEDS: BISOPROLOL 5 MG TABLET PO SCH (09:03)
[2020-08-18] MEDS: TOPIRAMATE 25 MG TABLET PO SCH (09:03)
[2020-08-18] MEDS: ESCITALOPRAM 10 MG TABLET PO SCH (09:05)
[2020-08-18] MEDS: PANTOPRAZOLE 40 MG TABLET PO SCH (09:05)
[2020-08-18] MEDS: ATORVASTATIN 40 MG TABLET PO SCH (20:31)
[2020-08-19] MEDS: SODIUM CHLORIDE 0.9% 1,000 ML IV SCH ×2 (04:50→09:08)
[2020-08-19 06:49] LABS: Alanine Aminotransferase < 9 U/L (13-56); Albumin 2.1 G/DL (3.4-5.0); Alkaline Phosphatase 57 U/L (45-117); Aspartate Amino Transferase 25 U/L (0-37); Bilirubin,Indirect 0.3 MG/DL (0.0-1.0); Total Protein 7.3 G/DL (6.4-8.3)
[2020-08-19 08:08] VITALS: BP 139/60
[2020-08-19] MEDS: INSULIN REGULAR 100 UNIT/ML SUBCUT SCH ×2 (08:28→11:16)
[2020-08-19] MEDS: CLOPIDOGREL 75 MG TABLET PO SCH (09:08)
[2020-08-19] MEDS: BISOPROLOL 5 MG TABLET PO SCH (09:08)
[2020-08-19] MEDS: APIXABAN 2.5 MG TABLET PO SCH (09:09)
[2020-08-19] MEDS: TOPIRAMATE 25 MG TABLET PO SCH (09:09)
[2020-08-19] MEDS: predniSONE 20 MG TABLET PO SCH (09:09)
[2020-08-19] MEDS: PANTOPRAZOLE 40 MG TABLET PO SCH (09:09)
[2020-08-19] MEDS: ESCITALOPRAM 10 MG TABLET PO SCH (09:09)
[2020-08-19] MEDS: DOCUSATE SODIUM 100 MG CAPSULE PO SCH (09:09)
[2020-08-19] MEDS: LEVOFLOXACIN INJ 750 MG in PREMIX 1 EACH IV SCH (09:13)
[2020-08-19] MEDS: ACETAMINOPHEN 325 MG TABLET PO PRN (10:54)
[2020-08-23 10:38] LABS: Immuno Free Light Chain Kappa 9.57 MG/DL (0.33-1.94)
[2020-08-23 10:39] LABS: Immuno Free Light Chain Lambda 11.52 MG/DL (0.57-2.63); Immuno Free Light Chain Ratio 0.83 MG/DL (0.26-1.65)
== END 2020-08-19 13:10 | disposition home or self-care (01) | DRG 64 ==
LOC: N.ED 10:07 → N.EDINP 14:28 → N.4E 16:02 → N.TELEN 16:27
PROVIDERS: ADMIT Family Medicine; ATTEND Family Medicine

== ENCOUNTER 2021-04-25 14:39 | Observation (INO) ==
[2021-04-25] MEDS ORDERED: NITROGLYCERIN 2% OINT 1 INCH/GM PACK TOP STA (14:54)
[2021-04-25] MEDS ORDERED: ONDANSETRON 4 MG/2 ML VIAL IV STA (14:54)
[2021-04-25] MEDS ORDERED: MORPHINE 10 MG/1 ML VIAL IV STA (14:54)
[2021-04-25] MEDS ORDERED: ENOXAPARIN 60 MG/0.6 ML SYRINGE SUBCUT STA (14:54)
[2021-04-25] MEDS ORDERED: ALUM/MAG/SIMETH/LIDO VISC 1:1 30 ML BOTTLE PO STA (14:55)
[2021-04-25 15:30] LABS: Basophils # 0.1 10*3/uL (0.0-0.2); Basophils % 0.7 % (0.0-0.8); Eosinophils # 0.1 10*3/uL (0.0-0.87); Hemoglobin 13.9 GM/DL (12.0-16.0); Immature Granulocytes % 1.1 %; Immature Granulocytes Absolute 0.14 #; Lymphocytes # 2.3 10*3/uL (1.4-4.0); Lymphocytes % 19.2 % (21.3-54.2); Mean Corpuscular HGB Conc 35.6 GM/DL (32-36); Mean Corpuscular Volume 94.7 FL (87-102); Mean Platelet Volume 9.4 FL (9.6-12.0); Monocytes % 10.9 % (1.7-12.7); Neutrophils % 67.1 % (38.7-73.9); Platelet Count 209 T/CUMM (130-400); Red Blood Count 4.12 MC/CUMM (3.8-5.5); Red Cell Distribution Width 14.4 % (9.3-17.3); White Blood Count 12.2 T/CUMM (4-12)
[2021-04-25] MEDS ORDERED: MORPHINE 2 MG/1 ML SYRINGE ONE (15:45)
[2021-04-25 15:50] LABS: INR 1.2; PT Patient Result 13.5 SECS (10.5-12.0); Partial Thromboplastin Time 31.9 SECS (23.8-32.1)
[2021-04-25] MEDS ORDERED: diphenhydrAMINE CAP 25 MG CAPSULE PO PRN (16:15)
[2021-04-25] MEDS ORDERED: MAGNESIUM SULF RIDER 4 GM/100 ML PREMIX IV PRN (16:15)
[2021-04-25] MEDS ORDERED: ZALEPLON 5 MG CAPSULE PO PRN (16:15)
[2021-04-25] MEDS ORDERED: ALUMINUM/MAGNES/SIMETH MAX STR 30 ML UDCUP PO PRN (16:15)
[2021-04-25] MEDS ORDERED: POTASSIUM CHLORIDE 20 MEQ TABLET PO PRN (16:15)
[2021-04-25] MEDS ORDERED: MAGNESIUM SULF RIDER 2 GM/50 ML PREMIX IV PRN (16:15)
[2021-04-25 16:17] LABS: Albumin 3.9 G/DL (3.4-5.0); Bilirubin,Total 0.6 MG/DL (0.20-1.00); Calcium 9.6 MG/DL (8.5-10.1); Osmolality,Calculated 280.8 MOS/KG (273-304); Potassium 4.3 MMOL/L (3.5-5.1); Total Protein 7.3 G/DL (6.4-8.2)
[2021-04-25] MEDS ORDERED: RIVAROXABAN 20 MG TABLET PO STA (16:24)
[2021-04-25] MEDS ORDERED: INFLUENZA VIRUS VACCINE 0.5 ML SYRINGE IM ONE (19:26)
[2021-04-26 04:59] LABS: Basophils # 0.1 10*3/uL (0.0-0.2); Basophils % 0.7 % (0.0-0.8); Eosinophils # 0.1 10*3/uL (0.0-0.87); Hematocrit 38.4 VOL% (35.7-47.0); Hemoglobin 13.4 GM/DL (12.0-16.0); Immature Granulocytes % 1.1 %; Immature Granulocytes Absolute 0.12 #; Lymphocytes # 3.7 10*3/uL (1.4-4.0); Lymphocytes % 34.7 % (21.3-54.2); Mean Corpuscular HGB Conc 34.9 GM/DL (32-36); Mean Corpuscular Volume 95.3 FL (87-102); Mean Platelet Volume 9.5 FL (9.6-12.0); Monocytes % 10.1 % (1.7-12.7); Neutrophils % 52.4 % (38.7-73.9); Platelet Count 190 T/CUMM (130-400); Red Blood Count 4.03 MC/CUMM (3.8-5.5); Red Cell Distribution Width 14.5 % (9.3-17.3); White Blood Count 10.6 T/CUMM (4-12)
[2021-04-26 05:31] LABS: Albumin 3.7 G/DL (3.4-5.0); Bilirubin,Total 1.2 MG/DL (0.20-1.00); Calcium 9.3 MG/DL (8.5-10.1); Osmolality,Calculated 277.7 MOS/KG (273-304); Potassium 3.9 MMOL/L (3.5-5.1); Risk Ratio 4.2; Total Protein 7.3 G/DL (6.4-8.2); VLDL Cholesterol 55.4 MG/DL
[2021-04-26] MEDS ORDERED: PANTOPRAZOLE 40 MG TABLET PO SCH (09:00)
[2021-04-26] MEDS ORDERED: NITROGLYCERIN SL 0.4 MG TABLET SL PRN (10:00)
[2021-04-26] MEDS ORDERED: CYANOCOBALAMIN 1000 MCG/1 ML VIAL SUBCUT SCH (10:00)
[2021-04-26] MEDS ORDERED: traMADol 50 MG TABLET PO PRN (10:00)
[2021-04-26 12:42] VITALS: BP 118/52
[2021-04-26] MEDS ORDERED: ATORVASTATIN 20 MG TABLET PO SCH (21:00)
[2021-04-27] MEDS ORDERED: CHOLECALCIFEROL 5,000 UNIT TABLET PO SCH (09:00)
[2021-04-27] MEDS ORDERED: MULTIVITAMIN (CENTRUM) TABLET PO SCH (09:00)
[2021-04-27] MEDS ORDERED: predniSONE 5 MG TABLET PO SCH (09:00)
[2021-04-27] MEDS ORDERED: BISOPROLOL 5 MG TABLET PO SCH (09:00)
[2021-04-27] MEDS ORDERED: ESCITALOPRAM 10 MG TABLET PO SCH (09:00)
[2021-05-03] MEDS ORDERED: NF- (Semaglutide [Ozempic] 0.25 mg or 0.5 mg(2 mg/1.5 mL) pen injecto SUBCUT SCH (09:00)
== END 2021-04-26 15:31 | disposition home or self-care (01) ==
LOC: SUATTDRO → N.ED 14:39 → N.EDINP 14:39 → N.TELEN 18:37
PROVIDERS: ADMIT Internal Medicine Cardiovascular Disease; ATTEND Internal Medicine Cardiovascular Disease